=== PATIENT | female | born 1950 | race Caucasian/White ===

== ENCOUNTER 2024-04-14 11:32 | Outpatient (AMB) | payer MEDICARE, SELFPAY ==
--- NOTE | 2024-04-14 11:54 | HO.NEPHOV ---
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 Her baseline serum creatinine has been 0.88. She has been a diabetic but denies any retinopathy, proteinuria or neuropathy. She had taken Ozempic briefly in the past. She has longstanding hypertension and has been on losartan, hydrochlorothiazide as well as nifedipine. She had been having fluctuations in her serum creatinine as well as GFR and her hydrochlorothiazide has been discontinued. Her losartan dosage has been increased to 50 mg lately. She tries to monitor her blood pressure at home. She has been taking PPI for acid reflux. She has dyslipidemia and is on statins. She denies any carotid artery disease, CVA, NICOLE, PAD, CAD or CHF. She does not take any excessive nonsteroidal anti-inflammatories. She has history of dry eyes and dry mouth as well as generalized joint pains. She does not get recurrent urinary infections. She has not taken any antibiotics recently. She tries to maintain good hydration. She has no hearing issues, sinusitis, epistaxis, photosensitivity, urinary symptoms, history of renal calculus, flank pain, new bone pain. She has no history of hypercalcemia. She is concerned about her rising serum creatinine and drop in GFR. She mentioned that she had an ultrasound of her abdomen many years ago which incidentally showed some renal cysts. [facility] Medical History (Updated 04/14/24 @ 12:35 by Mike King MD) Dry eye Low back pain Anxiety GERD (gastroesophageal reflux disease) Depression Osteoarthritis Hypertension Hypothyroidism Hyperlipidemia Type 2 diabetes mellitus with renal complication Fatty liver Trigger finger of left thumb Age-related osteoporosis without current pathological fracture Benign paroxysmal positional vertigo CKD (chronic kidney disease) stage 3, GFR 30-59 ml/min Insomnia Elevated liver enzymes Spinal stenosis of lumbar region without neurogenic claudication Surgical History (Updated 07/31/24 @ 09:25 by Gabriela Beyer MA) S/P trigger finger release History of subtotal thyroidectomy History of eye surgery H/O colonoscopy History of back surgery History of fusion of cervical spine Family History (Updated 04/13/24 @ 09:26 by Gabriela Beyer MA) Father Hx of CABG Hypertension CVA (cerebral vascular accident) Hyperlipidemia Heart disease Mother Heart valve replaced Sister Hypertension Social History (Updated 04/14/24 @ 11:59 by Gabriela Beyer MA) Alcohol intake: current Comment: Rarely Patient Tobacco Use Status: Former Tobacco user Review of Systems Const All systems reviewed & are unremarkable except as noted in HPI and below Physical Exam Vital Signs: Last Vital Signs Pulse 81 04/14/24 11:56 BP 140/74 H 04/14/24 11:56 Pulse Ox 96 04/14/24 11:56 Oxygen Delivery Method Room Air 04/14/24 11:56 BMI result Body Mass Index 29.6 Const General: comfortable and no acute distress Orientation/consciousness: patient oriented x3 HEENT Head: Yes normocephalic Mouth: Normal oral and palatal mucosa present Eyes EOM: EOMs intact bilaterally Neck Neck: Yes supple Resp Auscultation: clear to auscultation bilaterally Cardio Jugular venous distension: no JVD Rate: regular rate GI Palpation (GI): Soft to palpation Auscultation: normal bowel sounds General: Yes no CVA tenderness Back/Spine/Pelvis Back: no CVA tenderness Skin General skin exam: no rashes or lesions noted Neuro General: patient oriented x3 and moves all extremities Extrem General: Yes no pedal edema Results Reviewed Nephrology Results: No Data to Display Assessment & Plan Assessment & Plan (1) JAIDEN (acute kidney injury): Code(s): N17.9 - Acute kidney failure, unspecified Category: Medical (2) Hypertension: Code(s): I10 - Essential (primary) hypertension Category: Medical Qualifiers: Hypertension type: primary hypertension Qualified Code(s): I10 - Essential (primary) hypertension Plan Melinda likely has JAIDEN due to tubular injury. She might have had altered auto regulation being on thiazide as well as ARB. Her thiazide has been discontinued. She does not take any excessive nonsteroidal inflammatories. She denies any proteinuria, microscopic hematuria or pedal edema. She denied retinopathy. She has dry eyes, dry mouth and joint swellings. I ordered autoimmune screen to rule out any glomerular etiology for her rise in serum creatinine. She has good urine output and there is no reason to suspect any obstructive uropathy. She has no history of renal calculus but has history of renal cyst during an an abdominal ultrasound in the past. She also has been taking omeprazole for long time which also can potentially cause renal dysfunction. I have asked her to discontinue her omeprazole and take Pepcid instead, if needed. I also have ordered imaging studies of her kidney including Doppler of her renal arteries to rule out any renal artery stenosis given she is on multiple antihypertensive medications. I asked her to cut down sodium in the diet and maintain good hydration. All questions answered. Follow-up appointment given. Time spending retrieving all the data from the past, clinical encounter and documentation 57 minutes. Orders: Orders Neutrophil Cytoplasma Ab Today I10 - Essential (primary) hypertension, N17.9 - Acute kidney failure, unspecified Myeloperoxidase Antibody Today I10 - Essential (primary) hypertension, N17.9 - Acute kidney failure, unspecified Anti Glomerular Basement Memb Today I10 - Essential (primary) hypertension, N17.9 - Acute kidney failure, unspecified Immunofixation Pnl, Serum Today I10 - Essential (primary) hypertension, N17.9 - Acute kidney failure, unspecified TAMEKA 1 Antibody Today I10 - Essential (primary) hypertension, N17.9 - Acute kidney failure, unspecified Anti Extractable Nuclear Ag Today I10 - Essential (primary) hypertension, N17.9 - Acute kidney failure, unspecified Creatinine Today I10 - Essential (primary) hypertension, N17.9 - Acute kidney failure, unspecified Blood Urea Nitrogen Today I10 - Essential (primary) hypertension, N17.9 - Acute kidney failure, unspecified Electrolytes Today I10 - Essential (primary) hypertension, N17.9 - Acute kidney failure, unspecified Calcium Today I10 - Essential (primary) hypertension, N17.9 - Acute kidney failure, unspecified Hepatitis B Surface Antibody Today I10 - Essential (primary) hypertension, N17.9 - Acute kidney failure, unspecified Hepatitis B Surface Antigen Today I10 - Essential (primary) hypertension, N17.9 - Acute kidney failure, unspecified UA and rflx microscopic Today I10 - Essential (primary) hypertension, N17.9 - Acute kidney failure, unspecified US renal doppler Today I10 - Essential (primary) hypertension, N17.9 - Acute kidney failure, unspecified JASPAL Reflex Titer and Pattern Today I10 - Essential (primary) hypertension, N17.9 - Acute kidney failure, unspecified Anti DNA DS Antibody Today I10 - Essential (primary) hypertension, N17.9 - Acute kidney failure, unspecified Proteinase 3 PR3 Antibodies Today I10 - Essential (primary) hypertension, N17.9 - Acute kidney failure, unspecified Complement C3 Today I10 - Essential (primary) hypertension, N17.9 - Acute kidney failure, unspecified Complement C4 Today I10 - Essential (primary) hypertension, N17.9 - Acute kidney failure, unspecified Scleroderma 70 Antibody Today I10 - Essential (primary) hypertension, N17.9 - Acute kidney failure, unspecified Sjogren's Antibodies Today I10 - Essential (primary) hypertension, N17.9 - Acute kidney failure, unspecified Phospholipase A2 Receptor Pnl Today I10 - Essential (primary) hypertension, N17.9 - Acute kidney failure, unspecified Parathyroid Hormone Intact Today I10 - Essential (primary) hypertension, N17.9 - Acute kidney failure, unspecified Protein Creatinine Ratio, Ur Today I10 - Essential (primary) hypertension, N17.9 - Acute kidney failure, unspecified Immunofixation, Random Urine Today I10 - Essential (primary) hypertension, N17.9 - Acute kidney failure, unspecified US renal BI Today I10 - Essential (primary) hypertension, N17.9 - Acute kidney failure, unspecified Coding Level of Care Code New Pt Level 5 (24721) Diagnoses JAIDEN (acute kidney injury) N17.9 Primary hypertension I10 Hypertension type: primary hypertension
[2024-04-14 11:56] VITALS: BP 140/74; PULSE 81; O2SAT 96; BMI 29.6
== END 2024-04-14 12:40 | disposition home or self-care (01) ==
PROVIDERS: PCP Internal Medicine; Visit Provider Internal Medicine Nephrology
DX: N17.0 Acute kidney failure with tubular necrosis (principal); I10 Essential (primary) hypertension
CPT/HCPCS: 99205

== ENCOUNTER → 2024-04-14 11:32 | Outpatient (BNVA) | payer MEDICARE, SELFPAY | PROVIDERS: PCP Internal Medicine; Visit Provider Internal Medicine Nephrology | DX: I12.9 Hypertensive chronic kidney disease with stage 1 through stage 4 chronic kidney disease, or unspecified chronic kidney disease (principal); N18.9 Chronic kidney disease, unspecified; N17.9 Acute kidney failure, unspecified | CPT/HCPCS: 99202 ==

== ENCOUNTER 2024-04-26 10:35 | Outpatient (REF) | payer MEDICARE, SELFPAY ==
--- NOTE | ~2024-04-26 | US_ITS ---
EXAMINATION: ULTRASOUND RENAL WITH DOPPLER CLINICAL INFORMATION: Acute kidney failure COMPARISON: None. TECHNIQUE: Real-time grayscale, color Doppler, and duplex Doppler evaluation of the kidneys and renal vasculature was performed. FINDINGS: RENAL MEASUREMENTS: Right: 10.0 x 4.6 x 4.5 cm (Sag x AP x TV) Left: 9.6 x 4.6 x 4.6 cm (Sag x AP x TV) The renal parenchyma appears normal. No hydronephrosis or nephrolithiasis. DOPPLER INTERROGATION: AORTA: Mid aorta: 235 cm/sec RIGHT MAIN RENAL ARTERY: Proximal: 57 cm/sec Mid: 49 cm/sec Distal: 63 cm/sec LEFT MAIN RENAL ARTERY: Proximal: 98 cm/sec Mid: 61 cm/sec Distal: 76 cm/sec RENAL-AORTIC RATIO (RAR): Right: Not calculated due to mid aortic velocity outside of range 40-100 cm/s making RAR inaccurate. Left: Not calculated due to mid aortic velocity outside of range 40-100 cm/s making RAR inaccurate. SEGMENTAL RESISTIVE INDICES: Right: 0.72-0.79 Left: 0.76-0.81 RENAL VEINS: Right: Patent with normal waveform. Left: Patent with normal waveform. US/US renal BI IMPRESSION: No evidence of hemodynamically significant renal artery stenosis. Markedly elevated mid aortic velocity raises the possibility of a significant aortic stenosis. Recommend further evaluation with CTA abdomen and pelvis without and with contrast or MRA abdomen without and with contrast if renal function allows.
--- NOTE | ~2024-04-26 | US_ITS ---
EXAMINATION: ULTRASOUND RENAL WITH DOPPLER CLINICAL INFORMATION: Acute kidney failure COMPARISON: None. TECHNIQUE: Real-time grayscale, color Doppler, and duplex Doppler evaluation of the kidneys and renal vasculature was performed. FINDINGS: RENAL MEASUREMENTS: Right: 10.0 x 4.6 x 4.5 cm (Sag x AP x TV) Left: 9.6 x 4.6 x 4.6 cm (Sag x AP x TV) The renal parenchyma appears normal. No hydronephrosis or nephrolithiasis. DOPPLER INTERROGATION: AORTA: Mid aorta: 235 cm/sec RIGHT MAIN RENAL ARTERY: Proximal: 57 cm/sec Mid: 49 cm/sec Distal: 63 cm/sec LEFT MAIN RENAL ARTERY: Proximal: 98 cm/sec Mid: 61 cm/sec Distal: 76 cm/sec RENAL-AORTIC RATIO (RAR): Right: Not calculated due to mid aortic velocity outside of range 40-100 cm/s making RAR inaccurate. Left: Not calculated due to mid aortic velocity outside of range 40-100 cm/s making RAR inaccurate. SEGMENTAL RESISTIVE INDICES: Right: 0.72-0.79 Left: 0.76-0.81 RENAL VEINS: Right: Patent with normal waveform. Left: Patent with normal waveform. US/US renal doppler IMPRESSION: No evidence of hemodynamically significant renal artery stenosis. Markedly elevated mid aortic velocity raises the possibility of a significant aortic stenosis. Recommend further evaluation with CTA abdomen and pelvis without and with contrast or MRA abdomen without and with contrast if renal function allows.
== END 2024-04-26 10:36 | disposition home or self-care (01) ==
LOC: HO.US 10:35
PROVIDERS: PCP Internal Medicine; Visit Provider Internal Medicine Nephrology
DX: N17.9 Acute kidney failure, unspecified (principal); I10 Essential (primary) hypertension
CPT/HCPCS: 76775; 93975

== ENCOUNTER 2024-05-12 10:22 | Outpatient (REF) | payer MEDICARE, SELFPAY ==
[2024-05-12 11:39] LABS: Appearance Urine Cloudy; Color Urine Yellow; Glucose Urine UA Negative (Negative); Leukocyte Esterase Urine Large (3+) (Negative); Nitrite Urine Negative (Negative); Specific Gravity - Urine 1.015 (1.005-1.025); UMIC TRIGGER UA YES; Urine Blood Negative (Negative); Urine Ketones Negative (Negative); Urine Protein Negative (Neg-Trace)
[2024-05-12 11:48] LABS: Bacteria Urine 4+ (None Seen); Hyaline Casts Urine 0-2 /LPF (0-2); RBC Urine 0-2 /HPF (0-2); WBC Urine 21-50 /HPF (0-5)
[2024-05-12 12:15] LABS: Parathyroid Hormone Intact 54.7 pg/mL (8.7-77.1)
[2024-05-12 12:17] LABS: Anion Gap 13 (12-20); Blood Urea Nitrogen 19 mg/dL (9-16); Calcium 9.3 mg/dL (8.4-10.2); Carbon Dioxide 22 mmol/L (22-29); Chloride 107 mmol/L (96-108); Estimated Glomerular Filt Rate 53; Potassium 4.3 mmol/L (3.3-5.1); Sodium 138 mmol/L (135-145)
[2024-05-12 12:26] LABS: Creatinine Urine 105.23 mg/dL; Total Protein Urine Random < 7 mg/dL (<12)
[2024-05-13 09:41] LABS: HBS Num1 21.48 mIU/mL (0-7.99); HBsAGNum1 0.23 S/CO (0.00-0.99); Hepatitis B Surface Antigen Negative (Negative); ~Hepatitis B Surface Antibody REACTIVE (Nonreactive)
[2024-05-13 19:07] LABS: Complement C3 67 mg/dL (83-193)
[2024-05-16 13:10] LABS: Anti Nuclear Antibody Screen NEGATIVE (NEGATIVE)
[2024-05-18 10:14] LABS: Neutrophil Cyto Ab Screen NEGATIVE (NEGATIVE)
[2024-05-18 15:53] LABS: Anti DNA DS Antibody <1 IU/mL; Anti Glomerular Basement Memb <1.0 AI; Antibody to SS-A Antigen <1.0 NEG AI (<1.0 NEG); Antibody to SS-B Antigen <1.0 NEG AI (<1.0 NEG); JO 1 Antibody <1.0 NEG AI (<1.0 NEG); Myeloperoxidase Antibody <1.0 AI; Proteinase 3 PR3 Antibodies <1.0 AI; SM/Ribonucleoprotein Ab <1.0 NEG AI (<1.0 NEG); Scleroderma 70 Antibody <1.0 NEG AI (<1.0 NEG); Smith Protein <1.0 NEG AI (<1.0 NEG)
[2024-05-19 21:58] LABS: IgA 327 mg/dL (70-320); IgG 1154 mg/dL (600-1540); IgM 52 mg/dL (50-300)
[2024-05-20 17:58] LABS: Phospholipase A2 IgG ELISA <4 RU/mL; Phospholipase A2 IgG IFA NEGATIVE (NEGATIVE)
== END 2024-05-12 10:23 | disposition home or self-care (01) ==
LOC: HO.LAB 10:22
PROVIDERS: PCP Hospitalist; Visit Provider Internal Medicine Nephrology
DX: I10 Essential (primary) hypertension (principal); N17.9 Acute kidney failure, unspecified
CPT/HCPCS: 80051; 81001; 82310; 82565; 82570; 82784; 83520; 83970; 84156; 84520; 86021; 86036; 86038; 86160; 86225; 86235; 86255; 86334; 86335; 86706; 87340

== ENCOUNTER 2024-06-23 10:26 | Outpatient (AMB) | payer MEDICARE, SELFPAY ==
--- NOTE | 2024-06-23 10:34 | HO.NEPHOV_ITS ---
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 Her baseline serum creatinine has been 0.88. She has been a diabetic but denies any retinopathy, proteinuria or neuropathy. She had taken Ozempic briefly in the past which she loves to pursue again. She has longstanding hypertension and has been on losartan, hydrochlorothiazide as well as nifedipine. She had been having fluctuations in her serum creatinine as well as GFR and her hydrochlorothiazide has been discontinued. Her losartan dosage has been increased to 50 mg lately. She tries to monitor her blood pressure at home. She has been taking PPI for acid reflux. She has dyslipidemia and is on statins. She denies any carotid artery disease, CVA, NICOLE, PAD, CAD or CHF. She does not take any excessive nonsteroidal anti-inflammatories. She has history of dry eyes and dry mouth but has some joint pains. She does not get recurrent urinary infections. She has not taken any antibiotics recently. She tries to maintain good hydration. She has no hearing issues, sinusitis, epistaxis, photosensitivity, urinary symptoms, history of renal calculus, flank pain, new bone pain. She has no history of hypercalcemia. She is concerned about her rising serum creatinine and drop in GFR. She mentioned that she had an ultrasound of her abdomen many years ago which incidentally showed some renal cysts.She has family H/O valvular heart disease. [facility] Medical History (Updated 06/23/24 @ 11:06 by Mike King MD) Dry eye Low back pain Anxiety GERD (gastroesophageal reflux disease) Depression Osteoarthritis Hypertension Hypothyroidism Hyperlipidemia Type 2 diabetes mellitus with renal complication Fatty liver Trigger finger of left thumb Age-related osteoporosis without current pathological fracture Benign paroxysmal positional vertigo CKD (chronic kidney disease) stage 3, GFR 30-59 ml/min Insomnia Elevated liver enzymes Spinal stenosis of lumbar region without neurogenic claudication Surgical History S/P trigger finger release History of subtotal thyroidectomy History of eye surgery H/O colonoscopy History of back surgery History of fusion of cervical spine Family History Father Hx of CABG Hypertension CVA (cerebral vascular accident) Hyperlipidemia Heart disease Mother Heart valve replaced Sister Hypertension Social History Alcohol intake: current Comment: Rarely Patient Tobacco Use Status: Former Tobacco user Review of Systems Const All systems reviewed & are unremarkable except as noted in HPI and below Physical Exam Vital Signs: Last Vital Signs Pulse 79 06/23/24 10:36 BP 132/80 06/23/24 10:36 Pulse Ox 95 06/23/24 10:36 Oxygen Delivery Method Room Air 06/23/24 10:36 BMI result Body Mass Index 29.9 Const General: comfortable and no acute distress Orientation/consciousness: patient oriented x3 HEENT Head: Yes normocephalic Mouth: Normal oral and palatal mucosa present Eyes EOM: EOMs intact bilaterally Neck Neck: Yes supple Resp Auscultation: clear to auscultation bilaterally Cardio Jugular venous distension: no JVD Rate: regular rate Heart sounds: Murmur heart sound present GI Palpation (GI): Soft to palpation Auscultation: normal bowel sounds General: Yes no CVA tenderness Back/Spine/Pelvis Back: no CVA tenderness Skin General skin exam: no rashes or lesions noted Neuro General: patient oriented x3 and moves all extremities Extrem General: Yes no pedal edema Results Reviewed Nephrology Results: Sodium 138 mmol/L (135-145) 05/12/24 Potassium 4.3 mmol/L (3.3-5.1) 05/12/24 Chloride 107 mmol/L (96-108) 05/12/24 Carbon Dioxide 22 mmol/L (22-29) 05/12/24 BUN 19 mg/dL (9-16) H 05/12/24 Creatinine 1.03 mg/dL (0.5-1.4) 05/12/24 Calcium 9.3 mg/dL (8.4-10.2) 05/12/24 PTH Intact 54.7 pg/mL (8.7-77.1) 05/12/24 Urine Protein Negative mg/dL (Neg-Trace) 05/12/24 Urine Creatinine 105.23 mg/dL 05/12/24 Protein/Creatinin Ratio TNP 05/12/24 Renal US 04/26/24 Assessment & Plan Assessment & Plan (1) Aortic heart murmur on examination: Code(s): I35.8 - Other nonrheumatic aortic valve disorders Category: Medical (2) Hypertension: Code(s): I10 - Essential (primary) hypertension Category: Medical Qualifiers: Hypertension type: primary hypertension Qualified Code(s): I10 - Essential (primary) hypertension Plan Melinda likely had JAIDEN due to tubular injury. She might have had altered auto regulation being on thiazide as well as ARB. Her thiazide has been discontinued. She does not take any excessive nonsteroidal inflammatories. She has no proteinuria, microscopic hematuria or pedal edema. She denied retinopathy. She has dry eyes, dry mouth and joint swellings. Autoimmune screen to rule out any glomerular etiology for her rise in serum creatinine was negative. She has good urine output and there is no reason to suspect any obstructive uropathy. She has no history of renal calculus but has history of renal cyst during an an abdominal ultrasound in the past. She also has been taking omeprazole for long time which also can potentially cause renal dysfunction. I have asked her to discontinue her omeprazole and take Pepcid instead, if needed. Imaging studies of her kidney including Doppler of her renal arteries showed elevated aortic velocity. Given this finding and family H/O and having murmur, I ordered an ECHO( on ARB). I shall cut back on ARB if her serum creatinine rises. She should stay away from NSAID's for now. I asked her to cut down sodium in the diet and maintain good hydration. All questions answered. Follow-up appointment given. Orders: Orders CA echo transthoracic complete Today I35.8 - Other nonrheumatic aortic valve disorders Creatinine 3 Months I10 - Essential (primary) hypertension Electrolytes 3 Months I10 - Essential (primary) hypertension Blood Urea Nitrogen 3 Months I10 - Essential (primary) hypertension Coding Level of Care Code Est Pt Level 4 (86457) Diagnoses Aortic heart murmur on examination I35.8 Primary hypertension I10 Hypertension type: primary hypertension
[2024-06-23 10:36] VITALS: BP 132/80; PULSE 79; O2SAT 95; BMI 29.9
== END 2024-06-23 11:12 | disposition home or self-care (01) ==
PROVIDERS: PCP Internal Medicine; Visit Provider Internal Medicine Nephrology
DX: I35.8 Other nonrheumatic aortic valve disorders (principal); I10 Essential (primary) hypertension
CPT/HCPCS: 99214

== ENCOUNTER → 2024-06-23 10:26 | Outpatient (BNVA) | payer MEDICARE, SELFPAY | PROVIDERS: PCP Internal Medicine; Visit Provider Internal Medicine Nephrology | DX: I35.8 Other nonrheumatic aortic valve disorders (principal); I10 Essential (primary) hypertension | CPT/HCPCS: 99212 ==

== ENCOUNTER → 2024-06-29 09:45 | Outpatient (REF) | payer MEDICARE, SELFPAY ==
--- NOTE | 2024-06-29 09:48 | CA_ITS ---
Transthoracic Echocardiogram Patient (Last, First, Middle): Melinda Aguila, Gender: Female Date of : 1950 Age: 74 Procedure Date: 06/29/2024 Procedure Type: Transthoracic Echocardiogram Location: OP Height: 157.48 cm Weight: 71.67 kg BSA: 1.73 m2 Heart Rate: bpm BP: 148 / 80 mmHg Social Worker Delinquency Prevention: TO Referring MD: Mike King MD Symptoms: I35.8 - Other nonrheumatic aortic valve disorders Study Quality: Adequate w contrast ECG Rhythm: Sinus Conclusions: - The left ventricular systolic function is normal. The calculated ejection fraction is 56% by biplane method. - No obvious valvular pathology seen on this study. Findings Procedure Information Contrast agent, definity, is being given per protocol without apparent complications. Left Ventricle Normal left ventricular cavity size. There is normal left ventricular wall thickness. The left ventricular systolic function is normal. The calculated ejection fraction is 56% by biplane method. There is no evidence of regional wall motion abnormalities. Diastolic function is normal for age. Right Ventricle Normal right ventricular cavity size and systolic function. Atria Both atria are normal in size. Aortic Valve There is a normal trileaflet aortic valve. There is mild calcification of the aortic valve. There is no aortic valve stenosis. Trace to mild aortic regurgitation. Mitral Valve The mitral valve appears normal. There is no mitral valve regurgitation. There is no mitral valve stenosis. Pulmonic Valve The pulmonic valve is likely normal. Tricuspid Valve Normal tricuspid valve structure. There is trace tricuspid valve regurgitation. There is no evidence of pulmonary hypertension. Great Vessels The asc aorta is normal in size. Venous The inferior vena cava is normal in size and collapses greater than 50% with inspiration. Pericardium/Pleural There is no evidence of pericardial effusion. Prior Study Comparison No prior study available for comparison. Recommendations, Care & Conclusions No obvious valvular pathology seen on this study. Measurements 2D Linear Measurements IVSd: 0.85 0.6-0.9/0.6-1.0 cm LVIDd: 4.54 3.9-5.3/4.2-5.9 cm LVIDd Index: 2.62 2.4-3.2/2.2-3.1 cm/m2 LVIDs: 3.07 2.0-3.6 cm LVPWd: 0.81 0.7-1.1 cm LA Diam: 3.20 2.7-3.8/3.0-4.0 cm LAIDs Index: 1.85 1.5-2.3 cm/m2 LV Mass: 150.90 67-162/88-224 g LV Mass Index: 87.23 43-95/49-115 g/m2 LVOT Diam: 1.90 3.0+(-)1.3 cm 2D Systolic Function EF 4C: 55.80 >55% EF 2C: 54.30 >55% EF BiP: 55.60 >55% Mitral Valve MV Pk E: 0.74 MV PK A: 0.53 MV Decel Time: 182.00 E/A: 1.40 E'Lateral: 7.07 E'Medial: 6.20 E/E' Med: 12.00 E/E' Lat: 10.50 PHT: 53.00 MVA PHT: 4.15 Decel [place]: 4.08 Aortic Valve AoV Pk Tristan: 1.29 AoV Mn Tristan: 0.87 AoV VTI: 0.29 AoV Pk Grad: 7.00 Aov Mn Grad: 3.00 RENETTA Cont.VTI: 2.02 LVOT LVOT Pk Tristan: 0.91 LVOT Mn Tristan: 0.63 LVOT VTI: 0.21 LVOT Pk Grad: 3.00 LVOT Mn Grad: 2.00 LVOT Diam: 1.90 LVOT Area: 2.84 Diastolic Function MV Pk E: 0.74 MV Pk A: 0.53 E/A: 1.40 E'Medial: 6.20 E/E' Med: 12.00 E' Laterial: 7.07 E/E' Lat: 10.50 Right Ventricle TAPSE (mm): 18.40 TVS' Tristan: 9.57 Tricuspid Valve RA Press: 3.00 Great Vessels Aorta Sinus of Valsalva: 2.99 2.0-3.[address] [place]: 2.53 1.7-3.4 cm Ao Asc: 3.00 2.1-3.4 cm Updated in Other Vendor System with Status of Final Marquis Garrison MD electronically signed on 06/30/2024 12:21:29 PM with status of Final
== END ==
LOC: HO.CARD 09:45
PROVIDERS: PCP Internal Medicine; Visit Provider Internal Medicine Nephrology
DX: I35.8 Other nonrheumatic aortic valve disorders (principal)
CPT/HCPCS: 93306; Q9957

== ENCOUNTER → 2024-06-29 09:48 | Outpatient (BNV) | payer MEDICARE, SELFPAY | PROVIDERS: PCP Internal Medicine; Visit Provider Internal Medicine | DX: I35.1 Nonrheumatic aortic (valve) insufficiency (principal); I35.8 Other nonrheumatic aortic valve disorders | CPT/HCPCS: 93306 ==